=== PATIENT | female | born 1940 ===

== ENCOUNTER 2017-05-01 08:58 | Outpatient (CLI) | payer OTHER ==
[~2017-05-01] VITALS: Ht 121.9 cm; Wt 43.1 kg
[~2017-05-01 08:58] MED LIST: AMOX-CLAV 500-1 EACH PO; AURO22 ML OTIC
[2017-05-01] MEDS ORDERED: AMOX-CLAV 500-1 EACH PO (10:47)
== END 2017-05-01 09:15 | disposition home or self-care (01) ==
LOC: OFIC 805 08:58
DX: J32.0 Chronic maxillary sinusitis (principal); J34.2 Deviated nasal septum; K05.10 Chronic gingivitis, plaque induced; E11.9 Type 2 diabetes mellitus without complications; M27.2 Inflammatory conditions of jaws